=== PATIENT | female | born 1950 | race Caucasian/White ===

== ENCOUNTER → 2019-08-18 09:45 | Outpatient (CLI) | payer MEDICARE, SELFPAY ==
[2019-08-16 08:46] VITALS: BMI 40.7
--- NOTE | 2019-08-18 09:47 | NM_ITS ---
CLINICAL: 69-year-old female with recent diagnosis of primary breast carcinoma. WHOLE BODY 99m Tc MDP RADIONUCLIDE BONE SCINTIGRAPHY COMPARISON: None available FINDINGS: Following the intravenous administration of 25.7 mCi of 99m Tc MDP, whole body bone images reveal: 1. Increased radiopharmaceutical concentration is identified in the right anterolateral fifth rib. 2. Enhanced uptake is defined in the acromioclavicular compartments of both shoulders, bilateral knee articulations, third lumbar vertebra posteriorly on the right, left posterior sacrum, the visualized right and left wrist articulations, right-left mid foot and left ankle. 3. The remaining skeletal structures are scintigraphically unremarkable with normal-appearing renal images and urinary bladder activity identified. Facilitated radiotracer distribution is noted in the interorbital aspect of the calvarium most consistent with periostitis. NM/Bone Scan Whole Body IMPRESSION: 1. The increase in radiopharmaceutical concentration identified in the right anterolateral fifth rib is most consistent with trauma-fracture. Plain film radiography correlation maybe of benefit. 2. Degenerative arthritis appears expressed in the bilateral shoulders, right and left knees, lumbar spine and sacrum, wrists bilaterally, right-left mid foot and left ankle. 3. There is no definitive typical scintigraphic evidence of diffuse axial skeletal metastatic disease on the current examination. Electronically Signed: Woody Hook DO at 23:17 EDT Tel , Service support ,
--- NOTE | 2019-08-18 11:10 | ECHOCSONC_ITS ---
Reason For Study: Chemo Encounter Procedure This was a 2D Doppler, Color Flow transthoracic echocardiogram. Myocardial strain analysis was performed in this exam to aid in the assessment of cardiac function. Contrast injection was performed. Exam performed in department. Left Ventricle Normal size and thickness. The estimated ejection fraction is 65-70 %. No evidence for diastolic dysfunction. No regional wall motion abnormalities noted. Right Ventricle Normal RV size. Normal systolic function. Atria Normal left atrium. Normal right atrium. No doppler evidence for ASD. Mitral Valve There is no mitral valve stenosis. Trivial mitral valve insufficiency. Tricuspid Valve There is no tricuspid stenosis. Trivial tricuspid valve insufficiency. Normal pulmonary artery pressure. Aortic Valve Trisinus/trileaflet aortic valve. There is no aortic stenosis. No aortic valve insufficiency. Pulmonic Valve There is no pulmonic valvular stenosis. No pulmonic valve insufficiency. Great Vessels Normal aortic root. Pericardium/Pleural No pericardial effusion. Medication Diluted definity 3ml given slow IV push to enhance endocardial definition. MMode/2D Measurements & Calculations LVIDd: 4.7 cm IVSd: 0.88 cm Ao root diam: 3.0 cm LVIDs: 2.9 cm LVPWd: 0.90 cm RVDd: 2.9 cm FS: 38.4 % LAV(MOD-bp): 44.2 ml LVAd ap4: 30.2 cm2 SV(MOD-sp4): 62.8 ml LAV(MOD-bp) Indexed: 22.5 ml/m2 EDV(MOD-sp4): 98.0 ml LAV(MOD-sp2): 45.2 ml EDV(sp4-el): 102.6 ml LAV(MOD-sp4): 42.9 ml LVAs ap4: 16.4 cm2 ESV(MOD-sp4): 35.3 ml ESV(sp4-el): 36.8 ml EF(MOD-sp4): 64.0 % EF(sp4-el): 64.1 % SV(sp4-el): 65.8 ml LA A4 area: 16.8 cm2 LA dimension(2D): 3.8 cm RA A4 area: 9.0 cm2 Doppler Measurements & Calculations MV E max trell: 73.9 cm/sec Lat Peak E' Trell: 9.2 cm/sec Med Peak E' Trell: 9.3 cm/sec MV A max trell: 83.6 cm/sec E/E' lat: 8.0 E/E' med: 7.9 MV E/A: 0.88 Ao V2 max: 130.5 cm/sec LV V1 max: 103.1 cm/sec PA V2 max: 99.7 cm/sec Ao max P.8 mmHg LV V1 max P.2 mmHg Ao V2 mean: 87.6 cm/sec Ao mean P.4 mmHg Ao V2 VTI: 31.0 cm TR max trell: 254.7 cm/sec TR max P.9 mmHg Interpretation Summary The study was technically difficult. Normal left ventricular systolic function, ejection fraction 65-70 %. No evidence for diastolic dysfunction. Trivial mitral valve insufficiency. Diluted definity 3ml given slow IV push to enhance endocardial definition. The study was technically difficult. Normal left ventricular systolic function, ejection fraction 65-70 %. Ordering Physician: Brayan Galvez Referring Physician: Trip Perez Performed By: Makeda Crump, JUNE, RVT
== END ==
PROVIDERS: Family Provider Family Medicine; PCP Family Medicine; Referring Provider Internal Medicine Medical Oncology; Visit Provider Internal Medicine Medical Oncology
DX: Z01.818 Encounter for other preprocedural examination (principal); C50.112 Malignant neoplasm of central portion of left female breast
CPT/HCPCS: 0399T; 78306; 93306; Q9957; A4216; C8929

== ENCOUNTER → 2019-08-23 13:50 | Outpatient (CLI) | payer MEDICARE, SELFPAY ==
[2019-08-16 08:46] VITALS: BMI 40.7
--- NOTE | 2019-08-23 13:52 | CT_ITS ---
STUDY: CT ABDOMEN AND PELVIS WITH CONTRAST REASON FOR EXAM: Female, 69 years old. Breast cancer new diagnosis RADIATION DOSAGE (If Supplied By Facility): CTDIvol = ( 19.48 ) mGy, DLP = ( 2005.84 ) mGycm TECHNIQUE: Transaxial images were obtained from the dome of the diaphragm to the symphysis pubis with oral contrast. Oral and amp; IV Readi-CAT and amp; 100mL Isovue-300 100ml was administered. Sagittal and coronal images were reconstructed. Individualized dose optimization techniques were used for this CT. COMPARISON: None. FINDINGS: Chest findings are reported separately. Normal liver. There are several calcified gallstones. There are multiple benign calcified granulomata of the spleen. Normal pancreas. Normal bilateral adrenal glands. Normal right kidney. Normal left kidney. There is a small hiatal hernia. Normal small intestine. There is colonic diverticulosis with no evidence of associated diverticulitis. There is non-visualization of the appendix. There are calcified plaques of the abdominal aorta and common iliac arteries. Normal inferior vena cava. Normal retroperitoneum. Normal urinary bladder. There is absence of the uterus consistent with a prior hysterectomy. Normal abdominal wall. There are degenerative changes of the lumbar spine. There is no evidence of osseous metastatic disease. CT/Abdomen/Pelvis WITH Contrast IMPRESSION: 1. Cholelithiasis. 2. Calcified splenic granulomas. 3. Small hiatal hernia. 4. Colonic diverticulosis with no evidence of associated diverticulitis. 5. Status post hysterectomy. 6. Degenerative changes of the lumbar spine. Electronically Signed: Pankaj Borrero MD at 23:30 EDT , Service support ,
--- NOTE | 2019-08-23 13:52 | CT_ITS ---
STUDY: CT CHEST WITH CONTRAST REASON FOR EXAM: Female, 69 years old. New diagnosis of breast cancer RADIATION DOSAGE (If Supplied By Facility): CTDIvol = ( 19.48 ) mGy, DLP = ( 2005.84 ) mGycm TECHNIQUE: Transaxial imaging was performed following intravenous administration of IV Isovue 300 100ml. Individualized dose optimization techniques were used for this CT. COMPARISON: None. FINDINGS: The lungs are normal. There is no demonstrated pleural abnormality. The heart size is within normal limits. There is no pericardial effusion. Coronary arterial calcifications are present. Normal mediastinum. Normal hilar regions. Normal enhanced pulmonary arteries. There are calcified plaques of the thoracic aorta. Normal osseous structures. There is scattered increased density of the left breast relative to the right. Soft tissue markers or surgical clips are seen in the left breast. There is mild left breast skin thickening. Surgical clips are present in the left axilla. There is no evidence of axillary adenopathy Abdominal findings are reported separately. CT/Chest WITH Contrast IMPRESSION: Scattered increased density of the left breast relative to the right. Soft tissue markers or surgical clips are seen in the left breast. There is mild left breast skin thickening. Left axillary surgical clips are noted. There is no evidence of axillary adenopathy. Coronary arterial calcifications are present. No pulmonary nodules are evident. The visualized osseous structures are unremarkable. Electronically Signed: Pankaj Borrero MD at 23:23 EDT , Service support ,
== END ==
PROVIDERS: Family Provider Family Medicine; PCP Family Medicine; Referring Provider Internal Medicine Medical Oncology; Visit Provider Internal Medicine Medical Oncology
DX: C50.112 Malignant neoplasm of central portion of left female breast (principal)
CPT/HCPCS: 71260; 74177; Q9967

== ENCOUNTER → 2019-12-25 12:05 | Outpatient (CLI) | payer MEDICARE, SELFPAY ==
[2019-11-20 11:03] VITALS: BMI 37.2
[2019-12-14 08:43] VITALS: BMI 37.5
--- NOTE | 2019-12-25 12:12 | RAD_ITS ---
STUDY: X-RAY - BILATERAL RIBS WITH CHEST REASON FOR EXAM: Female, 69 years old. LEFT UPPER ANTERIOR RIB/CHEST WALL PAIN OVER UPPER LEFT BREAST S/P FALL LAST WEDNESDAY- PAIN SINCE WEDNESDAY -- PT IS CURRENTLY HAVING LEFT BREAST RADIATION- TREATMENT TODAY TECHNIQUE - RIBS: 8 view(s) of the bilateral ribs. TECHNIQUE - CHEST: Single PA view of the chest. COMPARISON: None. FINDINGS - RIBS : Normal visualized ribs without a demonstrated fracture. FINDINGS - CHEST: There is a right-sided chest port with the tip in the middle SVC. The lungs are clear and expanded. There is no demonstrated pleural abnormality. Normal size heart. Normal mediastinum and koffi. Normal visualized pulmonary arteries. There is atherosclerotic calcification of the aortic arch with tortuosity. There is demineralization of the osseous structures. There is degenerative osteoarthritis of the bilateral shoulders. There is no demonstrated abnormality of the visualized soft tissue structures of the upper abdomen. Surgical clips at the level of the left axilla noted. RAD/Ribs Champ Min 4V w/PA Chest IMPRESSION: RIBS: No acute fracture seen. CHEST: No acute cardiopulmonary disease. Electronically Signed: Vaishali Xiong MD at 3:56 EST , Service support ,
== END ==
PROVIDERS: PCP Family Medicine; Referring Provider Student in an Organized Health Care Education/Training Program; Visit Provider Student in an Organized Health Care Education/Training Program
DX: R07.89 Other chest pain (principal)
CPT/HCPCS: 71111

== ENCOUNTER 2020-05-21 12:01 | Outpatient (RCR) | payer MEDICARE, SELFPAY ==
[2019-11-20 11:03] VITALS: BMI 37.2
[2020-04-08 10:52] VITALS: BMI 39.2
--- NOTE | 2020-05-22 09:53 | HP.OTEVAL ---
Patient's Visit Information POLI HARTLEY is a 70 year old F, referred to Occupational Therapy by Dr. Trae Lora DO, with a diagnosis of breast cancer. Date of Evaluation: 05/21/20 Occupational Therapist: NAILA Cruz/Baljinder, CHT - Subjective This 70 year old female was seen for OT eval following breast cancer treatment. pt states she is here for ed. on lymphedema and precaution to look for lymphedema signs and symptoms. pt states she underwent a lumpectomy about a year ago and finished radiation-pt denies swelling in arm or chest. pt states she does feel some pulling in chest/pec region when she raises her arm over her head. pt would also like to know what she can do to increase he strength. - ROM ROM Comments: pt demo ROM WNL - Strength Activities Volunteer: right 50# left 45# Strength Comments: MMT grossly throughout 4+/5 - Lymphedema (Circumferential Measure) MCP: right 18cm left 18.2cm Wrist: right 17cm left 17cm Lower forearm: right 24cm left 25cm Largest forearm: right 31cm left 31cm Elbow: right 30cm left 30cm Largest humerus: right 44cm left 42cm Axcillary: right 40cm left 37cm - Sensation Sensation Comments: denies - Quick DASH-Disab of Arm,Shoulder& Hand Quick DASH Score: 4.5450 - Goals Demonstrate adequate knowledge skin care/prec by 2nd week: Yes Demonstrate adequate knowledge therapeutic exercises by d/c: Yes Select approp compression garment w/donning/care/wear by d/c: Yes Voice need to replace compression garment every 4-6mo by dc: Yes - Rehabilitation General Assessment: Pt demo need for skilled OT services to ed. pt on lymphedema signs/symptoms, need of compression sleeve with flights. skin care and precautions. Therapist ed. pt on initiation of a strengthening program use of light wts for UB, aquatic exercises for when she visits her sister in [place]. Therapist ed. pt on a slow progression with strengthening and importance of watching for signs or symptoms of swelling. pt demo understanding and agree to POC Rehabilitation Potential: Excellent - Anticipated Interventions Education re Diagnosis, Education re Life-long lymphedema Management, Education re Skin Care and Precautions, Education re Correct Donning Tech,Care&Wearing Sched Comp Garments, Home Program - Visit Plan TEXT: Thank you for the opportunity to evaluate your patient. For Medicare and Medicare HMO plans, please review the plan of care and approve it. It will need to be FAXED BACK to us at [phone] for Medicare purposes. Please let me know if there are questions or concerns regarding this plan of care. Physician Signature: Date:
== END 2020-05-21 19:00 | disposition home or self-care (01) ==
LOC: OT 12:01
PROVIDERS: PCP Family Medicine; Referring Provider Student in an Organized Health Care Education/Training Program; Visit Provider Student in an Organized Health Care Education/Training Program
DX: C50.912 Malignant neoplasm of unspecified site of left female breast (principal)
CPT/HCPCS: 97110; 97166

== ENCOUNTER → 2023-01-19 | Outpatient (CLI) | payer MEDICARE, SELFPAY ==
[2019-11-20 11:03] VITALS: BMI 37.2
--- NOTE | 2023-01-19 10:06 | BD_ITS ---
STUDY: DUAL ENERGY X-RAY ABSORPTIOMETRY / DXA REASON FOR EXAM: Female, 72 years old. Screening for osteoporosis; osteopenia TECHNIQUE: Bone Mineral Density (BMD) measurements of lumbar spine and bilateral hips were obtained. COMPARISON: Comparison is made with prior study August 11, 2012. FINDINGS: Lumbar Spine (L1-L4): g/cm2 (0.977) / T-score (-0.3) / Z-score (1.9) Findings are suggestive of normal bone density with a low fracture risk. Left Femur Total: g/cm2 (0.762) / T-score (-1.5) / Z-score (0.2) Left Femoral Neck: g/cm2 (0.643) / T-score (-1.9) / Z-score (0.1) Right Femur Total: g/cm2 (0.729) / T-score (-1.7) / Z-score (-0.1) Right Femoral Neck: g/cm2 (0.633) / T-score (-1.9) / Z-score (0.0) The T-Scores on the most recent prior examination were: Lumbar Spine (L1-L4): There has been worsening of bone density since the previous examination. Left Femur Total: which represents a worsening of 10.8%. Right Femur Total: which represents a worsening of 16.7%. BD/Dexa Bone Density Study IMPRESSION: The patient is considered osteopenic as outlined below according to World David Organization (WHO) criteria with a moderate fracture risk. There has been worsening of bone density since the previous examination. Reference Information: The T-score is the number of standard deviations above or below the standard which is normal for young adults at their peak bone mineral density. The World Health Organization (WHO) interprets the T-scores as follows: Above -1 Normal bone density Between -1 and -2.5 Osteopenia Equal to / or below -2.5 Osteoporosis As a practical clinical guideline, osteopenia may be graded as follows: Mild -1 through -1.5 Moderate -1.6 through -2.0 Severe -2.1 through -2.4 The Z-score is the number of standard deviations above or below age-matched controls. A Z-score of less than -1.5 would be considered abnormal. References: 1. NIH Osteoporosis and Related Bone Diseases www osteo.org 2. International Society for Clinical Densitometry www iscd.org 3. National Osteoporosis Foundation www nof.org Electronically Signed: Eriberto Huynh MD at 12:49 EDT ,
== END | disposition home or self-care (01) ==
PROVIDERS: PCP Family Medicine; Referring Provider Nurse Practitioner Family; Visit Provider Nurse Practitioner Family
DX: Z09 Encounter for follow-up examination after completed treatment for conditions other than malignant neoplasm (principal); Z13.820 Encounter for screening for osteoporosis; M85.80 Other specified disorders of bone density and structure, unspecified site
CPT/HCPCS: 77080

== ENCOUNTER → 2024-05-24 | Outpatient (CLI) | payer MEDICARE, SELFPAY ==
[2019-11-20 11:03] VITALS: BMI 37.2
--- NOTE | 2024-05-24 09:53 | BI_ITS ---
MAMMOGRAPHY - BILATERAL SCREENING REASON FOR EXAM: Female, 74 years old. Routine annual screening examination. PERTINENT HISTORY: Personal history of breast cancer. Prior left lumpectomy with chemotherapy and radiation therapy. TECHNIQUE: Digital bilateral breast kelly (3D mammographic acquisition) in the CC and MLO projections. 2-D mediolateral oblique (MLO) and craniocaudad (CC) views of both breasts were obtained. CAD: Full Field Digital Mammography with Computer Added Detection was performed. COMPARISON: Comparison is made with prior outside examination dated May 21, 2023. FINDINGS: Breast Composition: The breasts are almost entirely fatty. There are no dominant masses or suspicious calcifications. The patient is status post lumpectomy in the upper lateral aspect of the left breast with resultant postoperative scarring and deformity as well as dystrophic calcification at the operative site. No other significant abnormalities are identified. There has been no significant change since the prior study. BI/SCRN MAMM (CAD)W/KELLY BILAT IMPRESSION: Stable bilateral screening mammogram. Yearly follow-up mammogram recommended. (A) ASSESSMENT CATEGORY: BIRADS Category 2: Benign. A letter regarding these results will be sent to the patient by the facility within 30 days. Approximately 10% of breast cancers are not detected by mammography. A normal mammogram should not delay biopsy of a clinically suspicious abnormality. [id number] Electronically Signed: Eriberto Huynh MD at 10:45 EDT ,
== END | disposition home or self-care (01) ==
LOC: OPBI 09:53
PROVIDERS: PCP Family Medicine; Referring Provider Nurse Practitioner Family; Visit Provider Nurse Practitioner Family
DX: Z12.31 Encounter for screening mammogram for malignant neoplasm of breast (principal); Z85.3 Personal history of malignant neoplasm of breast; Z92.21 Personal history of antineoplastic chemotherapy; Z92.3 Personal history of irradiation
CPT/HCPCS: 77063; 77067

== ENCOUNTER → 2025-01-23 | Outpatient (CLI) | payer MEDICARE, SELFPAY ==
[2019-11-20 11:03] VITALS: BMI 37.2
--- NOTE | 2025-01-23 10:04 | BD_ITS ---
EXAM: DEXA examination of lumbar spine and both hips. CLINICAL HISTORY: 74-year-old female who is postmenopausal. History of adult fracture. COMPARISON: DEXA examination dated 01/19/2023 TECHNIQUE: DEXA examination of lumbar spine and both hips. FINDINGS: T-SCORES and BMD Lumbar spine: DEXA examination lumbar spine measures (0.900) g/cm2; T- score measures -1.0 and Z-score measures 1.3. There has been a significant decrease in the bone mineral density of the lumbar spine by 7.8% since the prior study dated 01/19/2023 Left femoral neck: DEXA examination of the left femoral neck measures (0.688) g/cm2; T-score measures -1.5. Z-score measures 0.6. Left total hip: DEXA examination of the total left hip measures (0.807) g/cm2; T-score measures -1.1. Z-score measures 0.7. There has been a significant increase in the bone mineral density of the left hip by 5.9% since the prior study dated 01/19/2023 Right femoral neck: DEXA examination of the right femoral neck measures (0.689) g/cm2; T-score measures -1.4. Z-score measures 0.6. Right total hip: DEXA examination of the total right hip measures (0.783) g/cm2; T-score measures -1.3. Z-score measures 0.5. There has been a significant increase in the bone mineral density of the right hip by 7.4% since the prior study dated 01/19/2023 Fracture Risk Calculation 10 Year Probability of Fracture: Major Osteoporotic Fracture: 14% Hip Fracture: 2.2% BD/Dexa Bone Density Study IMPRESSION: Patient demonstrates osteopenia of the lumbar spine and both hips. Reading Location: [id number]
== END | disposition home or self-care (01) ==
LOC: OPBD 10:00
PROVIDERS: PCP Family Medicine; Referring Provider Nurse Practitioner Family; Visit Provider Nurse Practitioner Family
DX: Z13.820 Encounter for screening for osteoporosis (principal); Z78.0 Asymptomatic menopausal state
CPT/HCPCS: 77080

== ENCOUNTER → 2025-05-25 | Outpatient (CLI) | payer MEDICARE, SELFPAY ==
[2019-11-20 11:03] VITALS: BMI 37.2
--- NOTE | 2025-05-25 10:00 | BI_ITS ---
EXAM: SCRN MAMM (CAD)W/KELLY BILAT DATE: 05/25/2025 CLINICAL HISTORY: F, Age 75 y/o , SCREENING FOR BREAST CANCER TECHNIQUE: SCRN MAMM (CAD)W/KELLY BILAT COMPARISON: Prior exam(s) dated 05/24/2024, 07/14/2019, 06/09/2019. FINDINGS: TISSUE DENSITY: There are scattered areas of fibroglandular density. Bilateral Breast Mammographic Findings: No significant masses, calcifications or other abnormalities are identified. BI/SCRN MAMM (CAD)W/KELLY BILAT IMPRESSION: There is no mammographic evidence of malignancy. OVERALL FINAL ASSESSMENT BI-RADS 1: NEGATIVE. RECOMMENDATION: Routine annual follow-up in 1 Year A letter with findings and recommendations will be mailed to the patient. Reading Location: [id number]
== END | disposition home or self-care (01) ==
LOC: OPBI 09:53
PROVIDERS: PCP Family Medicine; Referring Provider Nurse Practitioner Family; Visit Provider Nurse Practitioner Family
DX: Z12.31 Encounter for screening mammogram for malignant neoplasm of breast (principal); Z85.3 Personal history of malignant neoplasm of breast
CPT/HCPCS: 77063; 77067